=== PATIENT | male | born 1940 | race Asian ===

== ENCOUNTER 2017-07-19 17:55 | Emergency (ER) | payer MEDICARE, MEDICAID ==
[~2017-07-19] VITALS: Ht 162.6 cm; Wt 70.3 kg
[2017-07-19 18:09] VITALS: BP 129/79
[2017-07-19 18:11] VITALS: BP 129/79
--- NOTE | 2017-07-19 18:16 | Emergency Room Report ---
History of Present Illness General Chief Complaint: Abnormal Labs Source: EMS Present Illness HPI 77-year-old male with known insulin-dependent diabetes brought in by paramedics for [facility] that occurred over 6 hours prior Per nursing report patient became diaphoretic, blood sugar was low Patient was given juice and was fed during the day Review of medications patient is on one medium acting glyburide However no additional episodes of hypoglycemia in the last 6 hours Patient has no complaints EMS in route no other symptoms vitals remained stable Allergies: Coded Allergies: No Known Allergies (Unverified , 07/19/17) Patient History Limited by: language barrier Past Medical History: see triage record, old chart reviewed, DM Past Surgical History: none Pertinent Family History: none Social History: Denies: smoking, alcohol use, drug use Reviewed Nursing Documentation: PMH: Agreed, PSxH: Agreed Nursing Documentation-PMH Past Medical History: No History, Except For Hx Hypertension: Yes Hx COPD: Yes Hx Diabetes: Yes History Of Psychiatric Problem: Yes - schizophrenia Review of Systems All Other Systems: negative except mentioned in HPI Physical Exam Vital Signs Date Time Temp Pulse Resp B/P (MAP) Pulse Ox O2 Delivery O2 Flow Rate FiO2 07/19/17 17:50 98.2 93 16 129/79 96 Room Air Sp02 EP Interpretation: reviewed, normal General Appearance: normal inspection, well appearing, no apparent distress, alert, GCS 15, non-toxic Head: atraumatic ENT: normal ENT inspection, hearing grossly normal, normal voice Neck: normal inspection, full range of motion, supple, no bony tend Respiratory: normal inspection, lungs clear, normal breath sounds, no respiratory distress, no retraction, no wheezing Cardiovascular #1: regular rate, rhythm, no edema Gastrointestinal: normal inspection, normal bowel sounds, non tender, soft, no guarding, no hernia Genitourinary: no CVA tenderness Musculoskeletal: normal inspection, back normal, normal range of motion, Miki' s Sign negative Neurologic: normal inspection, alert, responsive, speech normal Psychiatric: normal inspection, judgement/insight normal, mood/affect normal Skin: normal inspection, normal color, no rash Medical Decision Making Diagnostic Impression: Primary Impression: Hypoglycemia ER Course patient very well appearing asymptomatic No focal neuro deficits Given multiple hours without repeat episodes of hypoglycemia it is unlikely that this episode was related to glimeperide or other long or medium acting sulfonulrea We'll discharge back to snf Last Vital Signs Date Time Temp Pulse Resp B/P (MAP) Pulse Ox O2 Delivery O2 Flow Rate FiO2 07/19/17 18:11 98.2 16 129/79 96 Room Air 07/19/17 17:50 93 Status: improved Disposition: XFER [facility] Condition: Improved Additional Instructions: - Glucose is 217 - Asymptomatic - After 5 hours of normal blood sugar and no additional hypoglycemia episodes, can be sent back to [facility] M.D. Jul 19, 2017 18:15
== END 2017-07-19 18:11 ==
LOC: EMR 17:55 → EDBD 17:55 → EMR 18:11
DX: E11.649 Type 2 diabetes mellitus with hypoglycemia without coma (principal); J44.9 Chronic obstructive pulmonary disease, unspecified; I10 Essential (primary) hypertension
CPT/HCPCS: 99283